=== PATIENT | male | born 1985 | race African-American/Black ===

== ENCOUNTER 2023-03-10 22:40 | Inpatient (IN) | payer MEDICAID ==
[~2023-03-10] VITALS: Ht 188 cm; Wt 92.1 kg
[2023-03-10] MEDS ORDERED: HEPARIN 5000 UNITS/ML VIAL IV ONE (23:00)
[2023-03-10] MEDS ORDERED: NITROGLYCERIN 0.4MG TABLET SL SL ONE (23:00)
[2023-03-10 23:02] LABS: BASOPHILS % 0.6 % (0.0-2.0); EOSINOPHILS % 1.8 % (0.0-5.0); HEMATOCRIT. 42.7 % (42.0-52.0); HEMOGLOBIN. 14.3 g/dL (14.0-18.0); LYMPHOCYTES % 34.1 % (20.0-50.0); MEAN CORPUSCULAR HGB CONC 33.5 g/dL (31.0-37.0); MEAN CORPUSCULAR VOLUME 83.6 fL (80.0-94.0); MEAN PLATELET VOLUME 8.7 fl (7.4-10.4); MONOCYTES % 9.7 % (2.0-8.0); NEUTROPHILS % 53.8 % (40.0-76.0); PLATELET 284 x1000/uL (130-400); RED CELL DISTRIBUTION WIDTH 15.9 % (11.6-14.6); WHITE BLOOD COUNT 14.9 x1000/uL (4.5-11.0)
[2023-03-10 23:08] LABS: CHLORIDE 103 mEq/L (98-107); INDEX HEMOLYSI 2 (1-3); INDEX ICTERIC 1 (1-4); INDEX LIPEMIC 1 (1-3); SODIUM 140 mEq/L (136-145)
[2023-03-10] MEDS ORDERED: IODIXANOL 320 MG/ML 150ML BOTTLE IV ONE (23:10)
[2023-03-10] MEDS ORDERED: LIDOCAINE HCL 1% 20ML VIAL (Pyxis) INJ ONE (23:10)
[2023-03-10] MEDS ORDERED: HEPARIN 1000 UNITS/ML 10ML ONE (23:11)
[2023-03-10 23:18] LABS: ALANINE AMINOTRANSFERASE 42 IU/L (13-61); ALBUMIN 4.2 g/dL (3.4-5.0); ASPARTATE AMINOTRANSFERASE 28 IU/L (15-37); BILIRUBIN TOTAL 0.3 mg/dL (0.1-1.0); CALCIUM 9.3 mg/dL (8.5-10.1); CARBON DIOXIDE 31 mEq/L (21-32); CREATININE 1.2 mg/dL (0.6-1.3); ETHANOL BLOOD < 10 mg/dL (<10); GLUCOSE 101 mg/dL (70-105); NT PRO B-TYPE NATRIURETIC PEP 363 pg/mL (5-125); PROTEIN TOTAL 8.2 g/dL (6.0-8.3); TROPONIN I HIGH SENSITIVITY 57 ng/L (<78); UREA NITROGEN BLOOD 11 mg/dL (7-21)
[2023-03-10] MEDS ORDERED: MIDAZOLAM HCL 2 MG/2 ML VIAL ONE (23:23)
[2023-03-10] MEDS ORDERED: VERAPAMIL HCL 2.5 MG/1 ML 2ML VIAL IV ONE (23:23)
[2023-03-10] MEDS ORDERED: FENTANYL CITRATE/PF 50MCG/ML 2ML VIAL ONE (23:23)
[2023-03-10] MEDS ORDERED: IODIXANOL 320MG/ML 100 ML BOTTLE IV ONE (23:56)
[2023-03-11] VITALS (18 sets, daily range): BP systolic 112–157; BP diastolic 64–98; PULSE 65–87; RESP 10–23; TEMP 98–98.5
[2023-03-11] MEDS ORDERED: CLOPIDOGREL 75MG TABLET ONE (00:28)
[2023-03-11] MEDS ORDERED: HYDRALAZINE 20MG/ML VIAL ONE (00:29)
[2023-03-11] MEDS ORDERED: ACETAMINOPHEN 325MG TABLET PO PRN ×2 (00:45→02:00)
[2023-03-11] MEDS ORDERED: ATROPINE SULFATE 1MG/10ML SYR IV PRN (00:45)
[2023-03-11] MEDS ORDERED: HYDRALAZINE 20MG/ML VIAL IV PRN (01:00)
[2023-03-11] MEDS ORDERED: GUAIFENESIN 200MG/10ML SUGAR FREE UDC PO PRN (02:00)
[2023-03-11] MEDS ORDERED: DOCUSATE SODIUM 100MG CAPSULE PO PRN (02:00)
[2023-03-11] MEDS ORDERED: IPRATROPIUM/ALBUTEROL 0.5-3(2.5)MG/3ML NEB HHN PRN (02:00)
[2023-03-11] MEDS ORDERED: CLONIDINE 0.1MG TABLET PO PRN (02:00)
[2023-03-11] MEDS: SODIUM CHLORIDE 0.45% 500 ML IV SCH ×2 (02:39→11:06)
[2023-03-11] MEDS: AMLODIPINE 5MG TABLET PO SCH ×2 (03:03→08:27)
[2023-03-11 06:18] LABS: T4 FREE 0.88 ng/dL (0.76-1.46); THYROID STIMULATING HORMONE 2.8 uIU/mL (0.36-3.74)
[2023-03-11 08:20] LABS: BASOPHILS % 0.3 % (0.0-2.0); EOSINOPHILS % 1.1 % (0.0-5.0); HEMATOCRIT. 40.5 % (42.0-52.0); HEMOGLOBIN. 13.5 g/dL (14.0-18.0); LYMPHOCYTES % 17.9 % (20.0-50.0); MEAN CORPUSCULAR HEMOGLOBIN 27.7 pg (28.0-32.0); MEAN CORPUSCULAR HGB CONC 33.4 g/dL (31.0-37.0); MEAN PLATELET VOLUME 8.6 fl (7.4-10.4); MONOCYTES % 10.4 % (2.0-8.0); NEUTROPHILS % 70.3 % (40.0-76.0); PLATELET 255 x1000/uL (130-400); RED BLOOD CELL COUNT 4.88 mill/uL (4.7-6.1); RED CELL DISTRIBUTION WIDTH 15.8 % (11.6-14.6)
[2023-03-11] MEDS: CLOPIDOGREL 75MG TABLET PO SCH (08:27)
[2023-03-11] MEDS: CARVEDILOL 12.5MG TABLET PO SCH ×2 (08:27→20:40)
[2023-03-11 08:34] LABS: CHLORIDE 105 mEq/L (98-107); INDEX HEMOLYSI 1 (1-3); INDEX ICTERIC 1 (1-4); INDEX LIPEMIC 1 (1-3); PARTIAL THROMBOPLASTIN TIME 31.3 sec (23.4-31.0); POTASSIUM 3.7 mEq/L (3.5-5.1); PROTHROMBIN TIME 10.6 sec (9.6-11.0); SODIUM 136 mEq/L (136-145)
[2023-03-11 08:40] LABS: CALCIUM 8.9 mg/dL (8.5-10.1); CARBON DIOXIDE 28 mEq/L (21-32); CREATININE 0.9 mg/dL (0.6-1.3); GLUCOSE 94 mg/dL (70-105); UREA NITROGEN BLOOD 10 mg/dL (7-21)
[2023-03-11] MEDS: ASPIRIN 81MG TABLET PO SCH (08:41)
[2023-03-11] MEDS ORDERED: ASPIRIN 325MG TABLET PO SCH (09:00)
[2023-03-11] MEDS: FAMOTIDINE 20MG TABLET PO SCH ×2 (11:05→16:59)
[2023-03-11 13:09] LABS: CLARITY URINE CLEAR (CLEAR); COLOR URINE YELLOW (YELLOW); GLUCOSE URINE NEGATIVE (NEGATIVE); KETONES URINE NEGATIVE (NEGATIVE); LEUKOCYTE ESTERASE URINE NEGATIVE (NEGATIVE); NITRITE URINE NEGATIVE (NEGATIVE); OCCULT BLOOD URINE NEGATIVE (NEGATIVE); PROTEIN URINE NEGATIVE (NEGATIVE); SPECIFIC GRAVITY URINE 1.012 (1.005-1.030); UROBILINOGEN URINE 0.2 E.U./dL (0.2-1.0)
[2023-03-11 13:47] LABS: *AMPHETAMINES SCREEN URINE NEGATIVE (NEGATIVE); *BARBITURATES SCREEN URINE NEGATIVE (NEGATIVE); *BENZODIAZEPINES SCREEN URINE PRESUMTIVE POSITIVE (NEGATIVE); *COCAINE SCREEN URINE NEGATIVE (NEGATIVE); CANNABINOID URINE SCREEN NEGATIVE (NEGATIVE); ECSTASY MDMA SCREEN URINE NEGATIVE (NEGATIVE); OPIATES URINE SCREEN NEGATIVE (NEGATIVE); PHENCYCLIDINE URINE SCREEN NEGATIVE (NEGATIVE)
[2023-03-11] MEDS ORDERED: ATORVASTATIN CALCIUM 40MG TABLET PO SCH (21:00)
[2023-03-12] VITALS: BP 125/76; PULSE 64; RESP 17; TEMP 98.1
[2023-03-12 04:00] VITALS: BP 102/58; PULSE 62; RESP 18; TEMP 97.9
[2023-03-12 06:58] LABS: BASOPHILS % 0.3 % (0.0-2.0); EOSINOPHILS % 1.1 % (0.0-5.0); HEMATOCRIT. 39.6 % (42.0-52.0); HEMOGLOBIN. 13.5 g/dL (14.0-18.0); LYMPHOCYTES % 22.5 % (20.0-50.0); MEAN CORPUSCULAR HEMOGLOBIN 28.4 pg (28.0-32.0); MEAN CORPUSCULAR VOLUME 83.4 fL (80.0-94.0); MEAN PLATELET VOLUME 8.9 fl (7.4-10.4); MONOCYTES % 10.8 % (2.0-8.0); NEUTROPHILS % 65.3 % (40.0-76.0); PLATELET 254 x1000/uL (130-400); RED BLOOD CELL COUNT 4.74 mill/uL (4.7-6.1); WHITE BLOOD COUNT 12.1 x1000/uL (4.5-11.0)
[2023-03-12 08:04] LABS: CHLORIDE 104 mEq/L (98-107); INDEX HEMOLYSI 1 (1-3); INDEX ICTERIC 1 (1-4); INDEX LIPEMIC 1 (1-3); POTASSIUM 3.8 mEq/L (3.5-5.1); SODIUM 136 mEq/L (136-145)
[2023-03-12 08:11] LABS: CARBON DIOXIDE 28 mEq/L (21-32); CREATININE 0.9 mg/dL (0.6-1.3); GLUCOSE 90 mg/dL (70-105); UREA NITROGEN BLOOD 10 mg/dL (7-21)
[2023-03-12] MEDS ORDERED: AMLODIPINE 10MG TABLET PO SCH (09:00)
[2023-03-12] MEDS ORDERED: ASPI-1497 PO (09:15)
[2023-03-12] MEDS ORDERED: CLOP-31 PO (09:16)
[2023-03-12] MEDS ORDERED: ATOR40TA70 PO (09:17)
[2023-03-12] MEDS ORDERED: CARV12.545 PO (09:18)
[2023-03-12] MEDS: FAMOTIDINE 20MG TABLET PO SCH (11:40)
[2023-03-12] MEDS: ASPIRIN 81MG TABLET PO SCH (11:40)
[2023-03-12] MEDS: CLOPIDOGREL 75MG TABLET PO SCH (11:40)
[2023-03-12] MEDS: CARVEDILOL 12.5MG TABLET PO SCH (11:48)
[2023-03-12 15:10] VITALS: BP 126/80; PULSE 69; TEMP 97.3; O2SAT 96
[2023-03-15] MEDS ORDERED: CLOP-31 PO (15:03)
[2023-03-15] MEDS ORDERED: ATOR40TA70 PO (15:03)
[2023-03-15] MEDS ORDERED: ASPI-1497 PO (15:03)
[2023-03-15] MEDS ORDERED: CARV12.545 PO (15:03)
== END 2023-03-12 16:48 | disposition home or self-care (01) | DRG 174 ==
LOC: ER 22:40 → MICUSO 23:30 → CVICU 03-11 01:51 → 7WST 03-11 12:33
PROVIDERS: ADMIT Internal Medicine; ATTEND Internal Medicine
PROC: 027034Z Dilation of Coronary Artery, One Artery with Drug-eluting Intraluminal Device, Percutaneous Approach (ICD-10-PCS; principal; 2023-03-11)
PROC: 4A023N7 Measurement of Cardiac Sampling and Pressure, Left Heart, Percutaneous Approach (ICD-10-PCS; 2023-03-11)
PROC: B211YZZ Fluoroscopy of Multiple Coronary Arteries using Other Contrast (ICD-10-PCS; 2023-03-11)
PROC: HZ31ZZZ Individual Counseling for Substance Abuse Treatment, Behavioral (ICD-10-PCS; 2023-03-11)
DX: I21.09 ST elevation (STEMI) myocardial infarction involving other coronary artery of anterior wall (principal); I50.21 Acute systolic (congestive) heart failure; D64.9 Anemia, unspecified; D72.829 Elevated white blood cell count, unspecified; E78.5 Hyperlipidemia, unspecified; I16.0 Hypertensive urgency; R73.03 Prediabetes; F17.210 Nicotine dependence, cigarettes, uncomplicated; I25.10 Atherosclerotic heart disease of native coronary artery without angina pectoris; I11.0 Hypertensive heart disease with heart failure; Z79.02 Long term (current) use of antithrombotics/antiplatelets; Z79.82 Long term (current) use of aspirin; Z79.899 Other long term (current) drug therapy
CPT/HCPCS: 36415; 71045; 80048; 80053; 80061; 80305; 80320; 81003; 83036; 83615; 83880; 84439; 84443; 84484; 85025; 85347; 93005; 93306; 93970; 99291; J0360; J1644; J2250; J3010; J3490; Q9967; G0480

== ENCOUNTER 2023-03-15 14:25 | Emergency (ER) | payer MEDICAID, OTHER ==
[~2023-03-15] VITALS: Ht 188 cm; Wt 90.0 kg
[~2023-03-15 14:25] MED LIST: ASPI-1497 PO; ATOR40TA70 PO; CARV12.545 PO; CLOP-31 PO
[2023-03-15 14:53] VITALS: BP 135/94; PULSE 84; TEMP 98.6; O2SAT 100
[2023-03-15] MEDS ORDERED: ASPI-1497 PO (15:03)
[2023-03-15] MEDS ORDERED: CARV12.545 PO (15:03)
[2023-03-15] MEDS ORDERED: CLOP-31 PO (15:03)
[2023-03-15] MEDS ORDERED: ATOR40TA70 PO (15:03)
== END 2023-03-15 15:18 | disposition home or self-care (01) ==
LOC: ER 14:33
DX: Z00.00 Encounter for general adult medical examination without abnormal findings (principal)
CPT/HCPCS: 99281